=== PATIENT | male | born 1970 | race Two or more races ===

== ENCOUNTER 2017-06-15 21:12 | Inpatient (IN) | payer MEDICAID ==
[~2017-06-15] VITALS: Ht 170.2 cm; Wt 81.6 kg
[2017-06-15] MEDS ORDERED: ONDANSETRON 4 MG/2 ML VIAL IV ONE (21:30)
[2017-06-15] MEDS ORDERED: IV NORMAL SALINE 1000 ML BAG IV ONE ×2 (21:30→22:45)
[2017-06-15] MEDS ORDERED: MECLIZINE HCL 25 MG TABLET PO ONE (21:30)
[2017-06-15] MEDS ORDERED: ONDANSETRON 4 MG/2 ML VIAL ONE (21:39)
[2017-06-15] MEDS ORDERED: MECLIZINE HCL 25 MG TABLET ONE (21:39)
--- NOTE | 2017-06-15 21:40 | NUR ---
Patient brought in by [facility] from home for syncopal episode at home. According to who witness the event patient got nauseated went to bathroom and sat on toilet to attempt to have BM and syncopal episode for 2mins. Patient upon arrival A/Ox3 c/o nausea
[2017-06-15] MEDS ORDERED: PANTOPRAZOLE SODIUM IV 80 MG in IV DEXTROSE 5% 100 ML IV ONE (21:45)
--- NOTE | 2017-06-15 22:00 | NUR ---
Patient laying down on gurny with no distress noted interacting with
[2017-06-15 22:08] LABS: BASOPHILS # (AUTO) 0.1 K/uL (0.0-8.0); BASOPHILS % (AUTO) 0.5 % (0.0-2.0); HEMATOCRIT 34.9 % (36.7-47.1); HEMOGLOBIN 11.4 g/dL (12.5-16.3); LYMPHOCYTES # (AUTO) 0.9 K/uL (20.0-40.0); LYMPHOCYTES % (AUTO) 5.2 % (20.5-51.5); MEAN CORPUSCULAR HEMOGLOBIN 26.4 uug (23.8-33.4); MEAN CORPUSCULAR HGB CONC 33 g/dL (32.5-36.3); MEAN CORPUSCULAR VOLUME 80.5 fL (73.0-96.2); MONOCYTES # (AUTO) 0.5 K/uL (2.0-10.0); MONOCYTES % (AUTO) 3.3 % (0.0-11.0); NEUTROPHILS # (AUTO) 14.8 K/uL (1.8-8.9); PLATELET COUNT (AUTO) 215 K/uL (152-348); RED BLOOD CELL COUNT(AUTO) 4.34 MIL/uL (4.06-5.63); WHITE BLOOD COUNT (AUTO) 16.3 K/uL (3.6-10.2)
[2017-06-15] MEDS ORDERED: PANTOPRAZOLE SODIUM 40 MG VIAL ONE (22:09)
[2017-06-15 22:28] LABS: BILIRUBIN,DIRECT 0.1 mg/dL (0.0-0.2); BILIRUBIN,TOTAL 0.4 mg/dL (0.2-1.0); CREATININE 1.1 mg/dL (0.6-1.3); POTASSIUM 4.4 mmol/L (3.5-5.1); TOTAL PROTEIN, SERUM 6.9 g/dL (6.4-8.2)
[2017-06-15 23:14] LABS: *OCCULT BLOOD STOOL POSITIVE (NEGATIVE)
[2017-06-15 23:18] LABS: *BILIRUBIN,URIN NEGATIVE (NEGATIVE); *BLOOD, URINE Trace-lysed (NEGATIVE); *CLARITY,URINE CLEAR (CLEAR); *COLOR,URINE YELLOW (YELLOW); *KETONES,URINE TRACE (NEGATIVE); *PROTEIN,URINE NEGATIVE (NEGATIVE); *UROBILINOGEN,URINE 0.2 E.U./dl (NORMAL); LEUKOCYTE ESTERASE ,URINE NEGATIVE (NEGATIVE); NITRITE, URINE NEGATIVE (NEGATIVE); UGLUCOSE NEGATIVE (NEGATIVE)
[2017-06-15 23:37] LABS: BACTERIA,URINE NONE SEEN /HPF (NONE SEEN); MUCUS,URINE FEW /LPF (0-FEW); RBC,URINE 0-3 /HPF (0-3); SQUAMOUS EPITHELIAL CELL,UR FEW /HPF (NONE SEEN); WBC,URINE 0-3 /HPF (0-3)
[2017-06-16] VITALS (14 sets, daily range): BP systolic 112–136; BP diastolic 74–90
--- NOTE | 2017-06-16 00:40 | NUR ---
Brought from ER via duc, a/a/o times 4, states to dizzy to walk. no bleeding noted family at bs, Phone given to family.No acute distress noted or voiced
--- NOTE | 2017-06-16 04:00 | NUR ---
Awaiting for orders, was told by that he would.
--- NOTE | 2017-06-16 05:55 | NUR ---
Helped to br, but got dizzy,and hr went up to 130, denied any pain. Still awaiting for orders.
--- NOTE | 2017-06-16 07:30 | NUR ---
RECIEVED PATIENT TRANSFER FROM CCU TO ROOM 220 AWAKE ALERT COOPERATE WELL SKIN PALE WARM NO SOB OR PAIN CONTINUE O2 AT 2L O2 SAT WNL94% C/O SLIGHTLY DIZZINESS WHEN MOVING NO N/V RESTING WELL IN BED ON FALL PRECAUTION CALL LIGHT IN REACH AND BED ALARM ON
--- NOTE | 2017-06-16 09:00 | NUR ---
DR TAJ LEE WAS TEXTS FOR ADM ORDERS AND MESSAGE LEFT
--- NOTE | 2017-06-16 09:30 | NUR ---
REFUSED TO EAT BREAKFAST STATE DOES NOT HUNGRY FAMILY AT BEDSIDE ,DR EVERETT WAS HERE PATIENT CONDITION AND NO ADM ORDER INFORM .
[2017-06-16] MEDS ORDERED: MORPHINE SULFATE 2 MG/1 ML DISP.SYRIN IV PRN (10:15)
[2017-06-16] MEDS ORDERED: ACETAMINOPHEN 650 MG SUPP.RECT RC PRN (10:15)
[2017-06-16] MEDS: PANTOPRAZOLE SODIUM 40 MG VIAL IV SCH ×2 (10:36→20:30)
[2017-06-16] MEDS: IV D5/ 0.9% NACL 1,000 ML IV PRN (10:37)
--- NOTE | 2017-06-16 10:45 | NUR ---
KEEP NPO AND START IVF INFUSION WELL LT HAND LAB DRAW BLOOD TODAY ORDER TELE WAS DISCONTINUE RESTING WELL AT THIS TIME VS STABLE
[2017-06-16 11:16] LABS: CREATININE 1.1 mg/dL (0.6-1.3); POTASSIUM 3.7 mmol/L (3.5-5.1)
[2017-06-16 11:24] LABS: BASOPHILS % (AUTO) 0.4 % (0.0-2.0); LYMPHOCYTES # (AUTO) 1.7 K/uL (20.0-40.0); LYMPHOCYTES % (AUTO) 18.9 % (20.5-51.5); MEAN CORPUSCULAR HEMOGLOBIN 26.9 uug (23.8-33.4); MEAN CORPUSCULAR HGB CONC 34 g/dL (32.5-36.3); MEAN CORPUSCULAR VOLUME 79.8 fL (73.0-96.2); MONOCYTES # (AUTO) 0.7 K/uL (2.0-10.0); NEUTROPHILS # (AUTO) 6.7 K/uL (1.8-8.9); NEUTROPHILS % (AUTO) 72.7 % (38.5-71.5); PLATELET COUNT (AUTO) 188 K/uL (152-348); RED BLOOD CELL COUNT(AUTO) 2.84 MIL/uL (4.06-5.63)
[2017-06-16 11:27] LABS: WHITE BLOOD COUNT (AUTO) 9.2 K/uL (3.6-10.2)
[2017-06-16 11:28] LABS: HEMATOCRIT 22.7 % (36.7-47.1); HEMOGLOBIN 7.6 g/dL (12.5-16.3)
--- NOTE | 2017-06-16 11:30 | NUR ---
STROKE EDUCATION /CORE MEASURE AND NIHSS SCALE ADD IT ON PER PROTOCOL EDUCATION PK GIVEN TO PATIENT AND FAMILY
--- NOTE | 2017-06-16 13:35 | NUR ---
PATIENT HAVING SOFT LARGE BLACK STOOL THIS AFTERNOON AND FEEL VERY WEAK ,PALE VS TAKEN STABLE BUT HR UP TO 105-[address] EVERETT WAS INFORM NEW ORDER FOR GI CONSULT AND LAB HB/HCT STAT LAB WAS CALL TO DRAW BLOOD ADRIENNE
--- NOTE | 2017-06-16 14:05 | NUR ---
C/O NAUSEA ZOFRAN IVP PRN GIVEN ORDER RESTING FAMILY AT BEDSIDE
[2017-06-16] MEDS: ONDANSETRON 4 MG/2 ML VIAL IV PRN (14:09)
[2017-06-16 14:39] LABS: HEMOGLOBIN 7.9 g/dL (12.5-16.3)
--- NOTE | 2017-06-16 14:50 | NUR ---
DR EVERETT WAS INFORM OF HB/HCT RESULT AND ORDER TO GIVE 1 UNIT OF PRBC TODAY ADRIENNE
--- NOTE | 2017-06-16 16:20 | NUR ---
START BLOOD TRANSFUSION TO DAY ORDER KEYON PROCEDURE WELL VS STABLE SLIGHTLY WARM TYLENOL SUPP GIVEN PRIOR BLOOD TX
--- NOTE | 2017-06-16 17:30 | NUR ---
RESTING WELL VS STABLE NO SOB OR DIZZINESS FAMILY AT BEDSIDE
--- NOTE | 2017-06-16 18:30 | NUR ---
ASSIST TO BRP ,HAVING 1 MORE BM MOD AMT WITH BLACK STOOL
--- NOTE | 2017-06-16 19:00 | NUR ---
BLOOD TRANSFUSION COMPLETE NO REACTION VS TAKEN STABLE RESTING WELL AT THIS TIME
--- NOTE | 2017-06-16 19:25 | NUR ---
RECEIVED PT'S A/A/O X4,DENIED OF PAIN OR ANY DISCOMFORT.PT'S PALE BUT DENIED OF DIZZINESS NOTED.MAINTAINED IVF MD'S ORDER.KEPT NPO;GOT CONSENT FOR EGD(SEE IN COMPUTER) FOR TOMORROW;PT VERBALIZED UNDERSTANDING AND COOPERATIVE AND STATED THAT"DOCTOR ALREADY EXPLAINED TO ME ABOUT IT".PT'S FAMILY MEMBERS AT THE BEDSIDE.UPDATED THE PLAN OF CARE TO PT AND FAMILY;THEY VERBALIZED UNDERSTANDING NOTED.KEPT CALL-LIGHT WITHIN REACH.
[2017-06-16 20:04] LABS: HEMATOCRIT 25.2 % (36.7-47.1); HEMOGLOBIN 8.4 g/dL (12.5-16.3)
--- NOTE | 2017-06-16 20:45 | NUR ---
UPDATED TO PT REGARDING THE RESULT OF Hb'S 8.4;NO TRANSFUSION NEED AT THIS TIME AND PT'LL HAVE THE NEXT BLOOD TEST ~ 01:45 MD'S ORDER( Q 6 HOURS);PT VERBALIZED UNDERSTANDING AND COOPERATIVE.KEPT NPO AND MAINTAINED IVF ORDER.NO BLEEDING'S SEEN.CONTINUED MONITORING TO PT.
--- NOTE | 2017-06-16 21:20 | NUR ---
PT'S ON BED REST COMFORTABLY,DENIED OF PAIN.KEPT NPO.ENDORSED TO EVA/RN TO CONTINUE CARE AT THIS TIME NOTED.
--- NOTE | 2017-06-16 21:42 | NUR ---
CHANGE OF ASSIGNMENT Pt resting in bed. AAO x4. at bedside, consent signed to stay overnight. No acute distress noted. No c/o pain or discomfort. NPO for procedure tomorrow. Pt compliant. Safety measures maintained. Call light and personal belongings within reach. Will continue to monitor.
[2017-06-17] MEDS: IV D5/ 0.9% NACL 1,000 ML IV PRN ×2 (03:49→23:35)
[2017-06-17 04:30] VITALS: BP 112/73
--- NOTE | 2017-06-17 06:27 | NUR ---
Pt slept comfortably at night. NPO maintained. All needs attended to promptly. Will endorse to day shift RN. Continue to monitor.
[2017-06-17 07:56] LABS: BASOPHILS % (AUTO) 0.4 % (0.0-2.0); EOSINOPHILS # (AUTO) 0.1 K/uL (0.0-0.7); EOSINOPHILS % (AUTO) 2.2 % (0.0-7.0); HEMATOCRIT 22.2 % (36.7-47.1); HEMOGLOBIN 7.5 g/dL (12.5-16.3); LYMPHOCYTES # (AUTO) 1.8 K/uL (20.0-40.0); LYMPHOCYTES % (AUTO) 26.8 % (20.5-51.5); MEAN CORPUSCULAR HEMOGLOBIN 27.6 uug (23.8-33.4); MEAN CORPUSCULAR HGB CONC 34 g/dL (32.5-36.3); MEAN CORPUSCULAR VOLUME 81.7 fL (73.0-96.2); MONOCYTES # (AUTO) 0.6 K/uL (2.0-10.0); MONOCYTES % (AUTO) 8.5 % (0.0-11.0); NEUTROPHILS # (AUTO) 4.2 K/uL (1.8-8.9); NEUTROPHILS % (AUTO) 62.1 % (38.5-71.5); RED BLOOD CELL COUNT(AUTO) 2.72 MIL/uL (4.06-5.63); WHITE BLOOD COUNT (AUTO) 6.7 K/uL (3.6-10.2)
--- NOTE | 2017-06-17 08:00 | NUR ---
AWAKE ALERT COOPERATE WELL NO DIZZINESS OR ANY ACUTE DISTRESS CONTINUE IVF AND NPO FOR EGD THIS AM CONSENT SIGNS AND CHECK LIST COMPLETE RESTING WELL WITH CALL LIGHT IN REACH
[2017-06-17 08:09] LABS: PLATELET COUNT (AUTO) 147 K/uL (152-348)
[2017-06-17] MEDS: PANTOPRAZOLE SODIUM 40 MG VIAL IV SCH ×2 (08:37→21:23)
[2017-06-17] MEDS ORDERED: IV LACTATED RINGERS SOLUTION 1,000 ML BAG IV ONE (08:54)
[2017-06-17] MEDS ORDERED: PROPOFOL 200 MG/20 ML BOTTLE IV ONE (08:54)
[2017-06-17] MEDS ORDERED: LIDOCAINE HCL 2% 20 ML VIAL MC ONE (08:54)
[2017-06-17 09:03] LABS: MAGNESIUM 1.9 mg/dL (1.8-2.4); PHOSPHOROUS 3.1 mg/dL (2.5-4.9); POTASSIUM 4.1 mmol/L (3.5-5.1)
[2017-06-17 11:02] VITALS: BP 110/80
--- NOTE | 2017-06-17 11:15 | NUR ---
TO GI LAB VIA BED CONDITION STABLE
[2017-06-17] MEDS ORDERED: SUCCINYLCHOLINE CHLORIDE 200 MG/10 ML VIAL ONE (11:36)
[2017-06-17 12:45] VITALS: BP 130/81
--- NOTE | 2017-06-17 13:42 | NUR ---
PATIENT TRANSFERRED BACK INTO MED-SURG UNIT IN STABLE CONDITION. NO COMPLAINTS OF PAIN VERBALIZED BY PATIENT WHEN ASKED. VITAL SIGNS STABLE, AFEBRILE, NO S/S OF DISTRESS. WILL FOLLOW MD ORDERS, CLEAR LIQUID DIET IMPLEMENTED. BLOOD PRESSURE OF 130/81, 94 HR, 97% O2 SAT ON RA, 97.7 TEMP, 18 RR, 0 PAIN.
--- NOTE | 2017-06-17 15:00 | NUR ---
DR EVERETT WAS INFORM OF HB/HCT THIS AFTERNOON AND ORDER TO GIVE 1 UNIT OF PRBC TODAY NEW IV LINE START #20 ON LFA
[2017-06-17 15:07] VITALS: BP 114/84
[2017-06-17 15:18] LABS: HEMATOCRIT 21.4 % (36.7-47.1)
[2017-06-17 15:30] LABS: HEMOGLOBIN 7.2 g/dL (12.5-16.3)
[2017-06-17] MEDS ORDERED: MAGNESIUM CITRATE 296 ML BOTTLE PO ONE (16:30)
[2017-06-17] MEDS ORDERED: GOLYTELY 4000 ML BOTTLE PO ONE (16:30)
--- NOTE | 2017-06-17 18:00 | NUR ---
STABLE HEMODYNAMIC STATUS NO DIZZINESS OR PAIN SAFETY MEASURE PROVIDED CALL LIGHT IN REACH
--- NOTE | 2017-06-17 18:30 | NUR ---
CONSENT FOR COLONOSCOPY SIGNS AND START PREP MAG CITRATE AND GOLYTELY KEYON WELL NO N/V
--- NOTE | 2017-06-17 19:20 | NUR ---
RECEIVED PT AWAKE, ALERT, ORIENTEDX3.FAMILY AT BEDSIDE. IV INTACT AND PATENT. PT SHOWS NO SIGNS OF DISTRESS. PT TAKING GOLYTELY. WILL CONTINUE TO MONITOR.
[2017-06-17 20:32] VITALS: BP 140/88
[2017-06-17 20:35] LABS: HEMATOCRIT 25.3 % (36.7-47.1)
[2017-06-17 20:44] LABS: HEMOGLOBIN 8.5 g/dL (12.5-16.3)
[2017-06-18] VITALS (10 sets, daily range): BP systolic 114–136; BP diastolic 72–94
[2017-06-18 02:07] LABS: HEMATOCRIT 21.7 % (36.7-47.1)
[2017-06-18 02:46] LABS: HEMOGLOBIN 7.4 g/dL (12.5-16.3)
--- NOTE | 2017-06-18 03:40 | NUR ---
CALLED [facility] TO NOTIFY THE CRITICAL LAB VALUE OF THE PT HGB 7.4. DOCTOR AWARE. WILL CONTINUE TO MONITOR.
[2017-06-18] MEDS: FLEET ENEMA 133 ML BOTTLE RC PRN ×2 (04:23→05:53)
--- NOTE | 2017-06-18 06:05 | NUR ---
PT HAD 2 FLEET ENEMA. PT SHOWS NO SIGNS OF DISTRESS. PT STABLE. PRESCRIBED MEDICATION GIVEN. PT TOLERATED IT WELL.SAFETY AND COMFORT PROVIDED. WILL ENDORSED TO DAYSHIFT NURSE.
[2017-06-18 06:12] LABS: BASOPHILS % (AUTO) 0.4 % (0.0-2.0); EOSINOPHILS # (AUTO) 0.1 K/uL (0.0-0.7); EOSINOPHILS % (AUTO) 2.2 % (0.0-7.0); HEMATOCRIT 22.3 % (36.7-47.1); HEMOGLOBIN 7.5 g/dL (12.5-16.3); LYMPHOCYTES # (AUTO) 1.3 K/uL (20.0-40.0); LYMPHOCYTES % (AUTO) 20.9 % (20.5-51.5); MEAN CORPUSCULAR HEMOGLOBIN 27.8 uug (23.8-33.4); MEAN CORPUSCULAR HGB CONC 34 g/dL (32.5-36.3); MEAN CORPUSCULAR VOLUME 82.3 fL (73.0-96.2); MONOCYTES # (AUTO) 0.6 K/uL (2.0-10.0); MONOCYTES % (AUTO) 9.3 % (0.0-11.0); NEUTROPHILS # (AUTO) 4.3 K/uL (1.8-8.9); NEUTROPHILS % (AUTO) 67.2 % (38.5-71.5); PLATELET COUNT (AUTO) 157 K/uL (152-348); RED BLOOD CELL COUNT(AUTO) 2.71 MIL/uL (4.06-5.63); WHITE BLOOD COUNT (AUTO) 6.4 K/uL (3.6-10.2)
[2017-06-18 07:05] LABS: CREATININE 0.9 mg/dL (0.6-1.3); MAGNESIUM 1.8 mg/dL (1.8-2.4); PHOSPHOROUS 3.3 mg/dL (2.5-4.9); POTASSIUM 3.5 mmol/L (3.5-5.1)
[2017-06-18 08:05] LABS: HEMATOCRIT 21.6 % (36.7-47.1); HEMOGLOBIN 7.5 g/dL (12.5-16.3)
[2017-06-18] MEDS: PANTOPRAZOLE SODIUM 40 MG VIAL IV SCH ×2 (08:35→20:18)
[2017-06-18] MEDS: ONDANSETRON 4 MG/2 ML VIAL IV PRN (08:38)
--- NOTE | 2017-06-18 11:30 | NUR ---
PT STABLE. PT BLOOD TRANSFUSING PT TOLERATED IT WELL. STILL ONGOING BLOOD TRANSFUSION. ENDORSE TO CONNIE. JAEGER.
--- NOTE | 2017-06-18 12:08 | NUR ---
BLOOD TRANSFUSION COMPLETED WITHOUT REACTION, CLOSELY MONITORED. WILL FOLLOW-UP HH
[2017-06-18 13:10] LABS: HEMATOCRIT 29.2 % (36.7-47.1); HEMOGLOBIN 9.9 g/dL (12.5-16.3)
[2017-06-18] MEDS ORDERED: FERR325T28 PO (19:52)
[2017-06-18] MEDS ORDERED: DOCU-141 PO (19:52)
[2017-06-18] MEDS ORDERED: OMEP20TA20 PO (20:11)
[2017-06-18 20:13] LABS: HEMATOCRIT 25.5 % (36.7-47.1); HEMOGLOBIN 8.7 g/dL (12.5-16.3)
[2017-06-18] MEDS ORDERED: ACETAMINOPHEN 325 MG TABLET PO PRN (21:15)
[2017-06-18] MEDS ORDERED: PROPOFOL 200 MG/20 ML BOTTLE IV ONE (21:29)
[2017-06-18] MEDS ORDERED: IV LACTATED RINGERS SOLUTION 1,000 ML BAG IV ONE (21:29)
--- NOTE | 2017-06-18 21:56 | NUR ---
PATIENT WITH A LOW GRADE FEVER OF 99.4, MD NOTIFIED AND ADVISED PATIENT TO STAY ONE MORE NIGHT, PATIENT DECLINED. TYLENOL PRN GIVEN BEFORE PATIENT WAS DISCHARGED HOME. EDUCATION PROVIDED WITH DISCHARGE INSTRUCTIONS, PATIENT VERBALIZED UNDERSTANDING OF DISCHARGE INSTRUCTIONS
== END 2017-06-18 21:30 | disposition home or self-care (01) | DRG 244 ==
LOC: ER 21:15 → CCU 06-16 00:28 → TELE 06-16 07:50 → MED 06-16 10:30
PROVIDERS: ADMIT Nurse Practitioner Acute Care; ATTEND Internal Medicine
PROC: 30233N1 Transfusion of Nonautologous Red Blood Cells into Peripheral Vein, Percutaneous Approach (ICD-10-PCS; principal; 2017-06-16)
PROC: 0DB68ZX Excision of Stomach, Via Natural or Artificial Opening Endoscopic, Diagnostic (ICD-10-PCS; 2017-06-17)
PROC: 0DBG8ZX Excision of Left Large Intestine, Via Natural or Artificial Opening Endoscopic, Diagnostic (ICD-10-PCS; 2017-06-18)
DX: K57.31 Diverticulosis of large intestine without perforation or abscess with bleeding (principal); N17.9 Acute kidney failure, unspecified; E87.2 Acidosis; D62 Acute posthemorrhagic anemia; E86.0 Dehydration; K64.8 Other hemorrhoids; K29.70 Gastritis, unspecified, without bleeding; D12.2 Benign neoplasm of ascending colon; G89.29 Other chronic pain; M54.9 Dorsalgia, unspecified; T14.90XS Injury, unspecified, sequela; V49.9XXS Car occupant (driver) (passenger) injured in unspecified traffic accident, sequela; Z87.828 Personal history of other (healed) physical injury and trauma; Z98.84 Bariatric surgery status; I45.10 Unspecified right bundle-branch block; M54.10 Radiculopathy, site unspecified; D72.829 Elevated white blood cell count, unspecified; R55 Syncope and collapse; R29.818 Other symptoms and signs involving the nervous system; D50.0 Iron deficiency anemia secondary to blood loss (chronic)
CPT/HCPCS: 36415; 70030-TC; 70450; 71045; 83550; 83605; 83735; 84100; 85018; 85025; 85730; 86850; 86900; 86901; 86920; 87040; 87086; 88342; 92523; 93005; A4217; A4663; C9113; J0330; J2405; J3490; J7030; J7040; J7042; J7050; J7060; J7120; J8597; P9016-BL; P9021

== ENCOUNTER 2018-12-20 19:48 | Inpatient (IN) | payer MEDICAID ==
[~2018-12-20] VITALS: Ht 170.2 cm; Wt 80.7 kg
[~2018-12-20 19:48] MED LIST: DOCU-141 PO; FERR325T28 PO; OMEP20TA20 PO
[2018-12-20] MEDS ORDERED: LABETALOL HCL 100 MG/20 ML VIAL IV ONE (20:45)
--- NOTE | 2018-12-20 20:50 | NUR ---
Labetalol not given to patient. HR 62.
[2018-12-20] MEDS ORDERED: LABETALOL HCL 100 MG/20 ML VIAL ONE (20:52)
[2018-12-20 20:58] LABS: BASOPHILS # (AUTO) 0.1 K/uL (0.0-8.0); EOSINOPHILS # (AUTO) 0.2 K/uL (0.0-0.7); EOSINOPHILS % (AUTO) 2.8 % (0.0-7.0); HEMATOCRIT 45.9 % (36.7-47.1); HEMOGLOBIN 15.2 g/dL (12.5-16.3); LYMPHOCYTES # (AUTO) 2.1 K/uL (20.0-40.0); LYMPHOCYTES % (AUTO) 29.6 % (20.5-51.5); MEAN CORPUSCULAR HEMOGLOBIN 26.9 uug (23.8-33.4); MEAN CORPUSCULAR HGB CONC 33 g/dL (32.5-36.3); MEAN CORPUSCULAR VOLUME 81.4 fL (73.0-96.2); MONOCYTES # (AUTO) 0.6 K/uL (2.0-10.0); MONOCYTES % (AUTO) 7.9 % (0.0-11.0); NEUTROPHILS # (AUTO) 4.3 K/uL (1.8-8.9); NEUTROPHILS % (AUTO) 58.7 % (38.5-71.5); PLATELET COUNT (AUTO) 236 K/uL (152-348); RED BLOOD CELL COUNT(AUTO) 5.64 MIL/uL (4.06-5.63); WHITE BLOOD COUNT (AUTO) 7.3 K/uL (3.6-10.2)
[2018-12-20] MEDS ORDERED: hydrALAZINE HCL 20 MG/1 ML VIAL ONE ×3 (20:59→22:17)
[2018-12-20] MEDS ORDERED: hydrALAZINE HCL 20 MG/1 ML VIAL IV ONE ×3 (21:00→22:00)
[2018-12-20 21:05] LABS: CREATININE 1.4 mg/dL (0.6-1.3); POTASSIUM 3.7 mmol/L (3.5-5.1)
[2018-12-20 21:11] LABS: BILIRUBIN,DIRECT 0.1 mg/dL (0.0-0.2); BILIRUBIN,TOTAL 0.3 mg/dL (0.2-1.0); TOTAL PROTEIN, SERUM 7.5 g/dL (6.4-8.2)
--- NOTE | 2018-12-20 21:28 | NUR ---
patient taken down for CT
[2018-12-20] MEDS ORDERED: IV NORMAL SALINE 1000 ML BAG IV ONE (21:30)
--- NOTE | 2018-12-20 21:47 | NUR ---
patient back from CTA
[2018-12-20] MEDS ORDERED: ASPIRIN 325 MG TABLET PO ONE (22:15)
--- NOTE | 2018-12-20 22:23 | NUR ---
patient abulated to the bathroom. stable and denies any dizziness or discomfort.
[2018-12-20] MEDS ORDERED: ASPIRIN 325 MG TABLET ONE (22:24)
[2018-12-21] MEDS ORDERED: CLONIDINE HCL 0.1 MG TABLET ONE (00:26)
[2018-12-21] MEDS ORDERED: ONDANSETRON 4 MG/2 ML VIAL ONE ×2 (00:28→01:13)
[2018-12-21] MEDS ORDERED: MORPHINE SULFATE 4 MG/1 ML DISP.SYRIN ONE (00:29)
--- NOTE | 2018-12-21 00:41 | NUR ---
report given to HEIDE Toney.
[2018-12-21] MEDS ORDERED: MORPHINE SULFATE 4 MG/1 ML DISP.SYRIN IV ONE (00:45)
[2018-12-21] MEDS ORDERED: ONDANSETRON 4 MG/2 ML VIAL IV ONE (00:45)
[2018-12-21] MEDS ORDERED: IV NS 1000 ML 1,000 ML IV PRN (01:00)
[2018-12-21] MEDS: ONDANSETRON 4 MG/2 ML VIAL IV PRN ×2 (01:26→04:27)
--- NOTE | 2018-12-21 01:40 | NUR ---
patient transferred to Tele floor via mra with Omayra JAEGER
--- NOTE | 2018-12-21 03:17 | NUR ---
Spoke with Piero PARDO, ordered: Cardiac diet, Telemetry status, Diagnosis: Hypertension.
[2018-12-21] MEDS: ACETAMINOPHEN 325 MG TABLET PO PRN ×2 (04:47→09:28)
[2018-12-21 04:55] VITALS: BP 164/112
--- NOTE | 2018-12-21 05:30 | NUR ---
Patient reported improvement in nausea and headache after IV Zofran and PO Tylenol. Ice pack was given for neck pain and tension.
[2018-12-21 06:33] LABS: BASOPHILS % (AUTO) 0.3 % (0.0-2.0); EOSINOPHILS % (AUTO) 0.1 % (0.0-7.0); HEMATOCRIT 44.9 % (36.7-47.1); HEMOGLOBIN 14.8 g/dL (12.5-16.3); LYMPHOCYTES # (AUTO) 0.6 K/uL (20.0-40.0); LYMPHOCYTES % (AUTO) 6.4 % (20.5-51.5); MEAN CORPUSCULAR HEMOGLOBIN 27.5 uug (23.8-33.4); MEAN CORPUSCULAR HGB CONC 33 g/dL (32.5-36.3); MEAN CORPUSCULAR VOLUME 83.2 fL (73.0-96.2); MONOCYTES # (AUTO) 0.4 K/uL (2.0-10.0); MONOCYTES % (AUTO) 3.7 % (0.0-11.0); NEUTROPHILS # (AUTO) 8.7 K/uL (1.8-8.9); NEUTROPHILS % (AUTO) 89.5 % (38.5-71.5); PLATELET COUNT (AUTO) 217 K/uL (152-348); RED BLOOD CELL COUNT(AUTO) 5.39 MIL/uL (4.06-5.63)
--- NOTE | 2018-12-21 06:44 | NUR ---
Patient voided in the bathroom, steady gait, urine sample was sent to the lab.
[2018-12-21 06:49] LABS: WHITE BLOOD COUNT (AUTO) 9.8 K/uL (3.6-10.2)
[2018-12-21 06:55] LABS: BILIRUBIN,TOTAL 0.3 mg/dL (0.2-1.0); CREATININE 1.2 mg/dL (0.6-1.3); POTASSIUM 3.9 mmol/L (3.5-5.1); TOTAL PROTEIN, SERUM 7.5 g/dL (6.4-8.2)
[2018-12-21 06:58] LABS: THYROID STIMULATING HORMONE 0.371 mIU/mL (0.358-3.740)
--- NOTE | 2018-12-21 07:30 | NUR ---
RECEIVED PATIENT SLEEPING. NO ACUTE DISTRESS NOTED. BED IN LOWEST POSITION, SIDE RAILS UP X2, CALL LIGHT WITHIN REACH. WILL CONTINUE TO MONITOR.
[2018-12-21 07:38] LABS: *BILIRUBIN,URIN NEGATIVE (NEGATIVE); *BLOOD, URINE NEGATIVE (NEGATIVE); *CLARITY,URINE CLEAR (CLEAR); *COLOR,URINE YELLOW (YELLOW); *KETONES,URINE 1+ (NEGATIVE); *UROBILINOGEN,URINE 0.2 E.U./dl (NORMAL); LEUKOCYTE ESTERASE ,URINE NEGATIVE (NEGATIVE); NITRITE, URINE NEGATIVE (NEGATIVE); UGLUCOSE NEGATIVE (NEGATIVE)
[2018-12-21 07:48] LABS: RBC,URINE 0-3 /HPF (0-3)
[2018-12-21 07:51] LABS: BACTERIA,URINE NONE SEEN /HPF (NONE SEEN); MUCUS,URINE MODERATE /LPF (0-FEW); SQUAMOUS EPITHELIAL CELL,UR FEW /HPF (NONE SEEN); URINE AMORPHOUS PHOSPHATES FEW /HPF
[2018-12-21] MEDS ORDERED: ASPIRIN EC 81 MG TABLET.DR PO SCH (09:00)
[2018-12-21 11:46] VITALS: BP 159/100
[2018-12-21] MEDS ORDERED: LISINOPRIL 20 MG TABLET PO SCH (12:15)
[2018-12-21 12:27] VITALS: BP 159/100
--- NOTE | 2018-12-21 13:00 | NUR ---
D/C'D PATIENT. REVIEWED D/C INSTRUCTIONS WITH PATIENT AND , PATIENT VERBALIZES UNDERSTANDING. PRESCRIPTION GIVEN TO , PATIENT VERBALLY UNDERSTANDS TO FILL THE PRESCRIPTION. PATIENT DENIES DISCOMFORT. PATIENT ESCORTED DOWM STAIRS WITH NO COMPLICATIONS.
[2018-12-21] MEDS ORDERED: ATORVASTATIN 40 MG TABLET PO SCH (21:00)
[2018-12-22] MEDS ORDERED: ONDANSETRON 4 MG/2 ML VIAL IV ONE (01:14)
== END 2018-12-21 13:00 | disposition home or self-care (01) | DRG 347 ==
LOC: ER 19:48 → TELE3 12-21 01:00
PROVIDERS: ADMIT Nurse Practitioner Acute Care
DX: S16.1XXA Strain of muscle, fascia and tendon at neck level, initial encounter (principal); N17.0 Acute kidney failure with tubular necrosis; G89.21 Chronic pain due to trauma; I10 Essential (primary) hypertension; X58.XXXA Exposure to other specified factors, initial encounter; Y92.019 Unspecified place in single-family (private) house as the place of occurrence of the external cause; M79.604 Pain in right leg; N28.9 Disorder of kidney and ureter, unspecified; R74.8 Abnormal levels of other serum enzymes; R20.0 Anesthesia of skin
CPT/HCPCS: 36415; 70030-TC; 70450; 70496; 71045; 84443; 85025; 85730; 93005; A4663; G0378; J0360; J2270; J2405; J3490; J7030

== ENCOUNTER 2022-03-23 12:18 | Emergency (ER) | payer BC, MEDICAID, OTHER ==
[~2022-03-23] VITALS: Ht 170.2 cm; Wt 80.7 kg
--- NOTE | 2022-03-23 12:32 | NUR ---
AT BEDSIDE FOR EVALUATION.
[2022-03-23 12:51] LABS: HEMATOCRIT 44.8 % (36.7-47.1); MEAN CORPUSCULAR HEMOGLOBIN 27.5 uug (23.8-33.4); MEAN CORPUSCULAR VOLUME 84.3 fL (73.0-96.2); PLATELET COUNT (AUTO) 248 K/uL (152-348)
[2022-03-23 12:56] LABS: CARBON DIOXIDE 33 mmol/L (21-32); CHLORIDE 103 mmol/L (98-107); GLUCOSE 96 mg/dL (74-106); POTASSIUM 4.4 mmol/L (3.5-5.1); UREA NITROGEN, BLOOD 17 mg/dL (7-18)
[2022-03-23] MEDS ORDERED: BENZ-13 PO (13:38)
--- NOTE | 2022-03-23 13:45 | NUR ---
Patient discharged to home in stable condition. Written and verbal after care instructions given. Patient verbalizes understanding of instructions. Stressed follow up or return to ER for worsening s/s.
== END 2022-03-23 13:45 | disposition home or self-care (01) ==
LOC: ER 12:18
DX: R07.9 Chest pain, unspecified (principal); J40 Bronchitis, not specified as acute or chronic; R91.8 Other nonspecific abnormal finding of lung field; K21.9 Gastro-esophageal reflux disease without esophagitis
CPT/HCPCS: 36415; 71045; 84484; 85025; 87400; 93005; A4663